=== PATIENT | female | born 1950 | race Caucasian/White ===

== ENCOUNTER 2016-11-18 10:47 | Inpatient (IN) | payer OTHER ==
[~2016-11-18] VITALS: Ht 157.5 cm; Wt 42.6 kg
--- NOTE | ~2016-11-18 | CO ---
Unit #: [id number] #: [id number] Patient: HEIDI FELICIANO [id number] [address] [address] [id number] I MR#: [id number] NAME: HEIDI FELICIANO ROOM: [facility] Age: 66 Sex: F Admission Date: 11/18/2016 : 1950 Attending Physician: Johan Iqbal M.D. Primary Care Physician: Issac Pena M.D. CONSULTATION REPORT REASON FOR CONSULTATION Respiratory failure and hypoxia. CHIEF COMPLAINT Fall. HISTORY OF PRESENT ILLNESS This patient is a 66-year-old female with a past medical history of left lung collapse since childhood for an unknown reason. Patient is not aware. Has a history of cardiac murmur and irregular heart rate. She presented with a fall and had a left femur fracture. Underwent repair and is requiring two liters oxygen postoperatively. Is hypoxic on two liters, and I am seeing the patient at the bedside. Currently comfortable. Mild shortness of breath. Denies any nausea, vomiting, diarrhea. No chest pain. MEDICATIONS As per MAY and have been reviewed. ALLERGIES Reviewed. REVIEW OF SYSTEMS Positive for pallor. No edema. No cyanosis. No jaundice. The rest is per History of Present Illness. The rest of a 12-point review of systems has been reviewed and is negative. PHYSICAL EXAMINATION VITAL SIGNS: Temperature 97, pulse 95, respirations 16, blood pressure 96/53. NEUROLOGIC: Awake, alert, oriented. No neuro deficits. HEENT: PERRLA. EOMI. NECK: Supple. No JVD. CHEST: Bilateral air entry. Bilateral mild rhonchi. Decreased air entry on the left side on auscultation. GASTROINTESTINAL: Nontender, soft. Bowel sounds positive. DIAGNOSTIC STUDIES LABORATORY: Reviewed. IMAGING: Reviewed. Chest x-ray showed left lung collapse with decreased inflation and right-sided pulmonary vascular congestion. ASSESSMENT Unit #: [id number] #: [id number] Patient: HEIDI FELICIANO 1. Acute postoperative hypoxia and pulmonary congestion. 2. 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 3. Irregular heart rate. PLAN At this point, the plan is to continue oxygen. Get a BNP level and 2D echo. Patient may have underlying pulmonary hypertension due to chronic loss of the pulmonary vasculature on the left side. Will get a noncontrast CT of the chest. Continue to wean oxygen (1) . May need diuretics. Will continue bronchodilator. Will follow up after the CT chest. Please see orders for detailed plans. Thank you very much for this consultation. We will continue to follow with you. Dictated by... Chandler Luna TD: 11/20/2016 21:56 JOB #: [id number] CONSULTATION REPORT Page 1 of 1 X Sirena Grove MD X CONSULTATION REPORT
--- NOTE | ~2016-11-18 | CR150 ---
[facility] A Service of [facility] RADIOLOGY TEXT RESULTS PATIENT: HEIDI FELICIANO LOCATION: C4 473-01 : [birth year] UNIT #: [id number] AGE: [address]: Johan Iqbal MD SEX: F ORDER DR: [id number] [facility] [address] [facility] [place] [facility]. [place], [place] [address] [id number] I MR#: [id number] Acc #: [id number] NAME: HEIDI FELICIANO : 1950 SEX: F STUDY DATE/TIME: 11/18/2016 11:15 UNIT: CEDOF ROOM: [id number] STUDY DESCRIPTION: CR Hip Min 2 Views Lt Attending Physician: Farzad Krause M.D. Ordering Physician: Yogesh Foreman D.O. Primary Care Physician: Issac Pena M.D. MEDICAL IMAGING REPORT This report is preliminary unless electronic signature is present EXAM AP pelvis with AP view of the left hip DATE 11/18/2016 HISTORY Left hip pain after falling this morning. COMPARISON None. FINDINGS There is a complete, displaced fracture of the subcapital left femoral neck with mild superior migration of the femoral shaft with respect to the femoral head. The femoral head remains appropriately located without hip dislocation. Right hip appears unremarkable. No pelvic ring fracture is seen. No sacroiliac joint or pubic symphysis diastasis is evident. IMPRESSION Complete fracture of the subcapital left femoral neck with mild superior migration of the femoral shaft. No hip dislocation. Dictated by... Stephanie White M.D. THIS IS AN ELECTRONICALLY VERIFIED REPORT Stephanie White M.D. at 11/19/2016 1:11 PM LLKym/steven TD: 11/18/2016 15:26 JOB #: [id number] [facility] A Service of [facility] RADIOLOGY TEXT RESULTS PATIENT: HEIDI FELICIANO LOCATION: C4 473-01 : [birth year] UNIT #: [id number] AGE: [address]: Johan Iqbal MD SEX: F ORDER DR: MEDICAL IMAGING REPORT Page 1 of 1 COPY
--- NOTE | ~2016-11-18 | CR206 ---
[facility] A Service of [facility] RADIOLOGY TEXT RESULTS PATIENT: HEIDI FELICIANO LOCATION: [facility] 473-01 : [birth year] UNIT #: [id number] AGE: [address]: Kirby Grover MD SEX: F ORDER DR: [id number] [facility] [address] [facility]. [place], [place] [address] [id number] I MR#: [id number] Acc #: [id number] NAME: HEIDI FELICIANO : 1950 SEX: F STUDY DATE/TIME: 11/19/2016 11:50 UNIT: [facility] ROOM: [facility] STUDY DESCRIPTION: CR Pelvis 1 or 2 Views Attending Physician: Kirby Grover M.D. Ordering Physician: Yared Guerra M.D. Primary Care Physician: Issac Pena M.D. MEDICAL IMAGING REPORT This report is preliminary unless electronic signature is present EXAM Pelvic radiograph. INDICATIONS Left-sided pelvic pain. Prior left total hip arthroplasty. FINDINGS Single AP view of the pelvis compared to 11/18/2016. Patient has undergone left hip hemiarthroplasty. The prosthesis is aligned anatomically. There is no new fracture. IMPRESSION Anatomic alignment status post left hip hemiarthroplasty. Dictated by... Cain De Santiago M.D. THIS IS AN ELECTRONICALLY VERIFIED REPORT Cain De Santiago M.D. at 11/22/2016 11:42 AM TODD/shakila TD: 11/21/2016 18:53 JOB #: [id number] MEDICAL IMAGING REPORT Page 1 of 1 COPY
--- NOTE | ~2016-11-18 | EKG ---
PATIENT: HEIDI FELICIANO UNIT #: [id number] Ventricular Rate: 106 BPM Atrial Rate: 106 BPM P-R Interval: 120 ms QRS Duration: 66 ms Q-T Interval: 328 ms QTC Calculation(Bezet): 435 ms P [place]: 75 degrees Calculated R [place]: -87 degrees Calculated T [place]: 42 degrees Diagnosis Line: Sinus tachycardia Diagnosis Line: Left axis deviation Diagnosis Line: Pulmonary disease pattern Baseline wander Diagnosis Line: Inferior infarct , age undetermined Diagnosis Line: Abnormal ECG Diagnosis Line: When compared with ECG of 18-NOV-2016 18:55, Diagnosis Line: (unconfirmed) Diagnosis Line: QRS axis Shifted left Diagnosis Line: Inferior infarct is now Present Diagnosis Line: Nonspecific T wave abnormality no longer evident Diagnosis Line: in Anterolateral leads Diagnosis Line: Confirmed by BLAKE MARIN MD ([id number]) on 11/20/2016 Diagnosis Line: 11:04:50 PM INTERPRETING MD: TOMAS GUZMAN
--- NOTE | ~2016-11-18 | OR ---
Unit #: [id number] #: [id number] Patient: HEIDI FELICIANO [id number] [address] [address] [id number] I MR#: [id number] NAME: HEIDI FELICIANO ROOM: 473 Date of Procedure: 11/19/2016 Admission Date: 11/18/2016 Surgeon: Nick Smith M.D. : 1950 Attending Physician: Johan Iqbal M.D. Primary Care Physician: Issac Pena M.D. OPERATIVE REPORT ADDENDUM Please change under the procedure performed, in parenthesis, there was a CPT code for the procedure, which should instead read 74104. Dictated by... Chandler Pfeiffer/romero TD: 11/20/2016 03:31 JOB #: [id number] OPERATIVE REPORT Page 1 of 1 X X PROCEDURE OPERATIVE NOTE
--- NOTE | ~2016-11-18 | CO ---
Unit #: [id number] #: [id number] Patient: HEIDI FELICIANO [id number] [facility] [address] [facility]. [place], [place] [address] [id number] I MR#: [id number] NAME: HEIDI FELICIANO ROOM: 473 Age: 66 Sex: F Admission Date: 11/18/2016 : 1950 Attending Physician: Johan Iqbal M.D. Primary Care Physician: Issac Pena M.D. Consultation Date: 11/18/2016 CONSULTATION REPORT SERVICE Orthopedic Surgery. REQUESTING SERVICE Hospitalist. CHIEF COMPLAINT Left hip fracture. HISTORY OF PRESENT ILLNESS The patient is a 66-year-old female, who per report tripped and fell over approximately one step on an incline landing on her left side. She states that she had immediate pain and was unable to walk and was brought to [facility] Emergency Department and found to have a displaced hip fracture. 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 PAST SURGICAL HISTORY The patient denies. MEDICATIONS The patient states that she does not take any medications. ALLERGIES None. SOCIAL HISTORY The patient denies alcohol or tobacco use. 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 PHYSICAL EXAMINATION GENERAL: The patient is alert and oriented x3. She is in no acute distress. HEENT: The patient is normocephalic and atraumatic. Pupils are equal, round, and reactive to light and accommodation. CHEST: Easy work of breathing. CARDIAC: The patient had regular rate and rhythm. ABDOMEN: Nontender, nondistended. MUSCULOSKELETAL: The patient does hold her left leg, and it shortened and Unit #: [id number] #: [id number] Patient: HEIDI FELICIANO in externally rotated position. Internal and external rotation, and flexion of the hip can cause the patient pain in the left groin. The patient is otherwise neurovascularly intact distally in the bilateral lower extremities and able to plantarflex and dorsiflex her feet against resistance. Sensation is intact to light touch in all nerve distributions. SKIN: Intact throughout. DIAGNOSTIC STUDIES IMAGING STUDIES: AP of the pelvis, and AP and lateral of the left hip demonstrate a displaced subcapital femoral neck fracture. The patient does have some evidence of osteopenia. No other acute abnormalities noted. ASSESSMENT This is a 66-year-old female with displaced femoral neck fracture. PLAN 1. The patient will be admitted to the Hospitalist Service and made n.p.o. with plans to go to the operating room tomorrow. 2. As the patient does look significantly older than she appears and per family report, is rather sedentary and not highly active. It will be reasonable to treat this patient with hemiarthroplasty. Given the location of the fracture, it will be unlikely to heal with fixation and this would also necessitate the patient be nonweightbearing and so she would likely do better with an option that lets her immediately weightbear. 3. Plan is to perform hemiarthroplasty with bipolar endoprosthesis via posterior approach. It was discussed with the patient and her family that we would give her posterior hip precautions after surgery, but she would be weightbearing as tolerated. All risk, benefits, and alternatives to the surgery were discussed with the patient and her family, and it was recommended that she undergo the hemiarthroplasty in order to minimize the potential complications from hip fracture. The plan would be to place the patient on a blood thinner postoperatively to prevent blood clots. Dictated by... Chandler Pfeiffer TD: 11/19/2016 14:03 JOB #: [id number] CONSULTATION REPORT Page 1 of 1 X X CONSULTATION REPORT
--- NOTE | ~2016-11-18 | OR ---
Unit #: [id number] #: [id number] Patient: HEIDI FELICIANO [id number] [address] [place], [place] [address] [id number] I MR#: [id number] NAME: HEIDI FELICIANO ROOM: 473 Date of Procedure: 11/19/2016 Admission Date: 11/18/2016 Surgeon: Nick Smith M.D. : 1950 Attending Physician: Johan Iqbal M.D. Primary Care Physician: Issac Pena M.D. OPERATIVE REPORT SERVICE Orthopedic Surgery. PREOPERATIVE DIAGNOSIS Left displaced femoral neck fracture. POSTOPERATIVE DIAGNOSIS Left displaced femoral neck fracture. PROCEDURE PERFORMED Left hip hemiarthroplasty for femoral neck fracture (CPT code 07595). ANESTHESIA General endotracheal. ESTIMATED BLOOD LOSS 400 mL. DRAINS None. SPECIMENS None. COMPLICATIONS None. PRODUCTION LINE MECHANIC FLUIDS Per Anesthesia report. IMPLANTS Ashland Accolade II size #4 stem, 132 degree neck angle; [place] LFIT V40 28 mm femoral head, 28 offset with 44 mm UHR bipolar component. INDICATIONS FOR PROCEDURE The patient is a 66-year-old female, who presented to [facility] Emergency Department with hip pain and was found to have displaced femoral neck fracture. The patient is 66 but low demand Unit #: [id number] #: [id number] Patient: HEIDI FELICIANO and per report from family rather sedentary and does look older than her stated age. Thus, it was felt that the best option was to perform a hemiarthroplasty for this femoral neck fracture. All risks, benefits, and alternatives to the procedure were discussed with the patient as well as a close family friend including, but not limited to, bleeding, infection, damage to adjacent neurovascular structures, blood clot, dislocation, fracture, need for further surgery, as well as anesthetic risks including the loss of life. Despite these risks, the patient did agree to proceed and informed consent was obtained. DESCRIPTION OF PROCEDURE The patient's left hip was marked after informed consent was obtained in the preoperative area and the patient was brought to the operative suite where general anesthesia was induced. The patient was then placed in the lateral decubitus position with her left hip up and secured well with a peg board. All bony prominences were padded and axillary roll had been placed. With the patient in good position for surgery, the left lower extremity was then prepped and draped in the standard sterile fashion. Surgical time-out was completed, and then approximately 10 cm incision over posterior border of the greater trochanter was made incising the skin sharply with a knife and then Bovie electrocautery was used to carry down to the fascia overlying greater trochanter. The fascia was then incised sharply and the gluteus melonie was split using a finger and then self-retaining retractor was used to retract the gluteus melonie. At this point, loose areolar tissue overlying the greater trochanter was gently to use the way using blunt dissection and Bovie electrocautery. At this point, same fracture hematoma was identified and was irrigated away and then the short external rotators were identified by internally rotating the hip and placing them on tension. At this point, retractor was placed under the gluteus medius and a knife was used to incise the interval between piriformis and gluteus minimus. Next, short external rotators were taken down off the back of the greater trochanter using Bovie electrocautery and carried down through the capsule of the hip creating an L-shaped capsulotomy connecting to the previous limb of the capsulotomy that was created with the knife. At this point, the capsule was then gently released off the femoral neck and the fracture was identified. The fracture hematoma was again irrigated and the leg was dropped into the hip pouch thus allowing exposure of the remaining femoral head within the acetabulum. At this point, a corkscrew was inserted by hand into the femoral head and gently lavaging and spinning it, it was able to be removed in one piece without difficulty. This was measured and found to be 44 mm. Then, the acetabulum was irrigated and several loose fragments of bone from the fractured femoral neck were removed. The acetabulum was inspected and found to be in good condition with no significant wear of cartilage and the labrum was intact and so plan to proceed with hemiarthroplasty continued. At this point, a femoral neck retractor was placed under the femoral neck and the leg was positioned to deliver the edge of the femur into the wound. A box osteotome was used to remove some bone from the medial aspect of the greater trochanter to allow for stretch out into the femoral canal, at which time, the femoral canal was then opened by hand using canal finding reamer. We then broached the femur sequentially to a #5 broach, which fit well, however, was found to be clearly too long, and so we downsized by going to back to a 3 and then to a 4 while calcar planning to allow for better fit of the femoral stem. A #4 stem was then trialed and found to reduce well with a -4 head. At this time, the trials were removed. The wound was irrigated, and the final #4 stem was impacted, however, was noted the stem did seat slightly more Unit #: [id number] #: [id number] Patient: HEIDI FELICIANO distal than the broach, and so we trialed again with a 0 head and found that this replicated the prior reduction. Thus the trial head was removed, and the final 28 head in the 44 mm bipolar shell was placed onto the trunnion and impacted, then checked to be sure that it was not loose and easily reduced back into the acetabulum. This was again taken through range of motion and found to be stable in all positions. At this point, the wound was again copiously irrigated and then the posterior capsule was repaired through drill holes in the greater trochanter using #2 FiberWire suture. This was augmented with several extracapsular sutures using #0 Vicryl. With the capsule closed and hemostasis obtained, the fascia overlying the gluteus melonie was closed tightly with 0 Vicryl suture and then skin was closed in layers including subcuticular running Monocryl and skin sealed with Prineo Dermabond mesh. At this point, a sterile dressing was placed and carefully keeping the leg externally rotated and abducted, the drapes were removed and the patient was returned to a supine and leg lengths were checked and found to be equal. Abduction pillow was then placed and the patient was awoken from general anesthesia having tolerated the procedure well. The patient returned to PACU and later to the floor in stable condition. At the conclusion of the procedure, all sponge, needle, and instrument counts were correct x2. Of note, the patient did receive tranexamic acid at the beginning of the case 10 mg/kg and did receive a second dose in PACU approximately 3 hours after the first. Also of note, the patient did receive preoperative antibiotic as per protocol. Dictated by.Patty. Chandler Pfeiffer/romero TD: 11/20/2016 07:54 JOB #: [id number] OPERATIVE REPORT Page 1 of 1 X X PROCEDURE OPERATIVE NOTE
--- NOTE | ~2016-11-18 | CR72 ---
[facility] A Service of [facility] RADIOLOGY TEXT RESULTS PATIENT: HEIDI FELICIANO LOCATION: [facility] 473-01 : [birth year] UNIT #: [id number] AGE: [address]: Kirby Grover MD SEX: F ORDER DR: [id number] [facility] [address] [place], [place] [address] [id number] I MR#: [id number] Acc #: [id number] NAME: HEIDI FELICIANO : 1950 SEX: F STUDY DATE/TIME: 11/20/2016 17:07 UNIT: [facility] ROOM: [facility] STUDY DESCRIPTION: CR Chest Single View Portable Attending Physician: Kirby Grover M.D. Ordering Physician: Johan Iqbal M.D. Primary Care Physician: Issac Pena M.D. MEDICAL IMAGING REPORT This report is preliminary unless electronic signature is present EXAM AP portable chest Date: 11/20/2016 17:07 HISTORY 66-year-old female shortness breath with activity and hypoxia. Symptoms began 11/19/2016. Fell on 11/18/2016. COMPARISON None FINDINGS There is severe volume loss in the left hemithorax. Partial opacification of the left hemithorax may represent layering with left pleural effusion. There is complete atelectasis versus dense pleural parenchymal thickening/fibrosis in the left apex. Advanced emphysematous changes are present in the right lung, there is mild scarring or atelectasis in the right costophrenic angle. Multiple old left rib fractures are demonstrated. Heart size is probably within normal limits, allowing for obscuration of cardiac silhouette by left chest opacity. Impression 1. Marked volume loss in the left hemithorax. There is either pleural parenchymal thickening/scarring in the left apex versus left apical consolidation/atelectasis. Hazy opacification throughout the left hemithorax may represent layering of left pleural fluid, as well. 2. Mild atelectasis or scarring in the right costophrenic angle with emphysematous changes in the right lung. 3. No comparison studies at this institution. Dictated by... Stephanie White M.D. [facility] A Service of [facility] RADIOLOGY TEXT RESULTS PATIENT: HEIDI FELICIANO LOCATION: [facility] 473-01 : [birth year] UNIT #: [id number] AGE: [address]: Kirby Grover MD SEX: F ORDER DR: THIS IS AN ELECTRONICALLY VERIFIED REPORT Stephanie White M.D. at 11/22/2016 9:51 AM PIETER/cecily TD: 11/21/2016 11:47 JOB #: [id number] MEDICAL IMAGING REPORT Page 1 of 1 COPY
--- NOTE | ~2016-11-18 | A ---
[facility] Nutrition Therapy DATE: 11/21/16 Patient: HEIDI FELICIANO Physician: MERCEDES Address: [address] [place] [address] Room/Bed: [address] [place] [address], Zip: [place] [address] Admit Date: 11/18/16 Date of : [birth year] Height: 5 2 Weight: 94 42.63 NUTRITIONAL ASSESSMENT: REASON: LOW BMI PT IS 66 Y.O. FEMALE ADMITTED FOR FALL, (R) HIP HURTS PMH: CHRONIC (L) LUNG COLAPSE (HYPOPLASTIC LUNG), IRREGULAR HEART RATE Anthropometrics: 5'2", WT: 93# (42 KG), BMI: 17, 85%IBW Labs: GLU: 125, NA+:134, CA+:7.9 Meds: ZOFRAN I/O & Bowel function: 3225/1400 Skin Integrity: DRY SKIN NOTED ALL OVER BODY Estimated Nutrition Needs: INCREASED NEEDS 2' PMH, PT UNDERWEIGHT STATUS Assessment: CHART REVIEWED AND EVENTS NOTED. PT SEEN FOR UNDERWEIGHT STATUS (LOW BMI). PT REPORTS "APPETITE GOES UP AND DOWN", NOTING NOT LIKING THE HOSPITAL FOOD HERE AT [facility]. PT REPORTS A FRIEND BRINGING DINNER FROM OUTSIDE [facility]. PT ADDS THAT SHE SNACKS ON CHEESE STICKS AND CHIPS. PT DENIES ANY RECENT WEIGHT LOSS, NOTES UBW IS "IN THE 90s". THIS RD ENCOURAGED SMALL FREQUENT MEALS + SUPPLEMENT INTAKE, PT AGREED TO ENSURE PUDDING BID, RD TO ORDER. PT REPORTED NO DIET QUESTIONS AT THIS TIME. RD TO FOLLOW. SEE RECOMMENDATIONS BELOW. Dx: UNDERWEIGHT R/T LIFESTYLE, PMH AEB BMI OF 17, 85%IBW. Intervention: 1. HH DIET 2. ENSURE PUDDING BID Monitoring, Evaluation and Goals: 1. ORAL INTAKE; CONSUME/TOLERATE >50% OF MEALS AND SUPPLEMENTS 2. WEIGHTS; PREVENT WEIGHT LOSS; PROMOTE GRADUAL WEIGHT GAIN TOWARDS HEALTHY BMI 3. LABS; WNL MONITOR: PER PROTOCOL, CRITERIA TO DETERMINE IF ABOVE GOALS ARE MET Recommendations: 1. PLEASE ORDER [place] ENSURE PUDDING BID W/MEALS FOR ADDITIONAL PROTEIN AND KCAL [facility] Nutrition Therapy DATE: 11/21/16 Patient: HEIDI FELICIANO Physician: MERCEDES Address: [address] [place] [address] Room/Bed: [address] [place] [address], Zip: [place] [address] Admit Date: 11/18/16 Date of : [birth year] Height: 5 2 Weight: 94 42.63 2. RECOMMEND TO CHANGE CURRENT DIET ORDER TO REGULAR IF PO INTAKE <50%. APPRECIATE FAMILY AND STAFF TO ENCOURAGE PO INTAKE RD WILL F/U PER PROTOCOL PT IS MILDLY COMPROMISED Respectfully, HUGO ARCOS MS, RD, LD [employer] [facility] Nutrition[facility] cc: client file
--- NOTE | ~2016-11-18 | CT57 ---
[facility] A Service of [facility] & [facility] RADIOLOGY TEXT RESULTS PATIENT: HEIDI FELICIANO LOCATION: [facility] [id number] : [birth year] UNIT #: [id number] AGE: [address]: Johan Iqbal MD SEX: F ORDER DR: [id number] [facility] [address] [place], [place] [address] [id number] I MR#: [id number] Acc #: [id number] NAME: HEIDI FELICIANO : 1950 SEX: F STUDY DATE/TIME: 11/20/2016 19:10 UNIT: [facility] ROOM: [facility] STUDY DESCRIPTION: CT Chest Wo Cont Attending Physician: Johan Iqbal M.D. Ordering Physician: Sirena Grove M.D. Primary Care Physician: Issac Pena M.D. MEDICAL IMAGING REPORT This report is preliminary unless electronic signature is present EXAM CT chest without contrast 11/20/2016 1910 hours HISTORY 66-year-old woman with history of hypoxia and shortness of air for 2 days, abnormal chest x-ray. Patient states history of collapsed lung as a child. COMPARISON Chest x-ray 11/20/2016 TECHNIQUE Helical noncontrasted images were obtained from the thoracic inlet through the adrenal glands. Sagittal and coronal reconstructions were performed. No contrast was administered. Total exam DLP 232 mGy-cm. This CT exam was performed with one or more of the following radiation dose reduction techniques: automatic control, adjustment of mA and/or kV according to patient size, and iterative reconstruction. FINDINGS Images through the thoracic inlet demonstrate no thyroid mass or supraclavicular adenopathy. There is marked volume loss in the left hemithorax and shift of the heart and mediastinum to the left. There is a fusiform ascending aortic aneurysm measuring up to 4 cm. This tapers in the aortic arch with proximal descending thoracic aorta measuring 2.8 cm. The main pulmonary artery is enlarged measuring 3.7 cm with right pulmonary artery 2.6 cm. There is a very small left pulmonary artery difficult to discriminate. There is minimal left apical pleural thickening. Much of the left apical density seen on plain film is related to the tortuous ectatic aorta. Images of the left lung demonstrate minimal linear stranding at the medial left lung base. I do not identify a left upper lobe bronchus nor a STS. [facility] A Service of [facility] & [facility] RADIOLOGY TEXT RESULTS PATIENT: HEIDI FELICIANO LOCATION: [facility] : [birth year] UNIT #: [id number] AGE: [address]: Johan Iqbal MD SEX: F ORDER DR: fissure on the left and I question whether the patient has had a left upper lobectomy. There are small horizontally oriented vessels in the medial left lower lobe which may represent pulmonary veins extending to a small inferior left pulmonary vein. There is some plaque-like pleural thickening in the lateral upper left hemithorax which appears relatively smooth and is likely chronic. There is a relative hyperexpansion of the right lung with peripheral linear density at the right lung base. Chronic atelectasis or scar is favored. There is no definite pneumonia, edema or bronchiectasis on the right. Limited views through the upper abdomen demonstrate cholecystectomy change. There is food debris distending the stomach. There is no adrenal lesion. IMPRESSION 1. There is marked volume loss in the left hemithorax with appropriate shift of heart and mediastinum to the left. I do not identify a left upper lobe bronchus nor do I see a fissure on the left and the findings suggest that the patient may have had a left upper lobectomy. History form states no prior chest surgery. There is a very small left pulmonary artery and there are small horizontally oriented vessels at the posteromedial left lung base which I believe extend to a small left inferior pulmonary vein. 2. Fusiform ascending aortic aneurysm measuring 4 cm. The main pulmonary artery measures 3.7 cm and the right pulmonary artery measures 2.6 cm. These are enlarged. 3. The right lung demonstrates linear to bandlike density at the right lung base which could represent atelectasis or scar. No evidence of acute pneumonia or effusion. 4. Limited views through the upper abdomen are negative. STAT * RESULT Dictated by... Melanie Cuellar M.D. THIS IS AN ELECTRONICALLY VERIFIED REPORT Melanie Cuellar M.D. at 11/21/2016 9:03 AM LEOBARDO/amairanir TD: 11/21/2016 00:07 JOB #: [id number] MEDICAL IMAGING REPORT [facility] A Service of [facility] & [facility] RADIOLOGY TEXT RESULTS PATIENT: HEIDI FELICIANO LOCATION: [facility] [id number] : [birth year] UNIT #: [id number] AGE: [address]: Johan Iqbal MD SEX: F ORDER DR: Page 1 of 1 COPY
--- NOTE | ~2016-11-18 | DS ---
Unit #: [id number] #: [id number] Patient: HEIDI FELICIANO [id number] [address] [place], [place] [address] [id number] I MR#: [id number] NAME: HEIDI FELICIANO ROOM: 473 Age: 66 Sex: F Admission Date: 11/18/2016 : 1950 Discharge Date: 11/22/2016 Attending Physician: Kirby Grover M.D. Primary Care Physician: Issac Pena M.D. DISCHARGE SUMMARY DIAGNOSIS ON ADMISSION Left hip fracture. DIAGNOSES ON DISCHARGE 1. Left hip fracture, status post left hip hemiarthroplasty. 2. Postoperative acute respiratory failure, resolved. 3. Anemia, secondary to acute blood loss. 4. Patient has malnutrition and underweight. CONSULTATIONS 1. Dr. Grove in pulmonary consultation. 2. Dr. Smith in orthopedic consultation. DIAGNOSTIC STUDIES LABORATORY: BNP was 133. Urine culture was negative. Patient's sodium is 137, potassium 4.5, creatinine 1.1. WBC 6.2, hemoglobin 7.5, platelet count 156,000. IMAGING: Patient had a pelvic x-ray done which revealed anatomic alignment status post left hip hemiarthroplasty. Patient had a CT scan of chest done which revealed marked volume loss in left hemithorax. Findings were suggestive of maybe possible left upper lobectomy. Fusiform ascending aortic aneurysm, 4 cm. Patient's main pulmonary artery measured 3.7 cm. ASSESSMENT AND PLAN A 66-year-old patient presented to [facility] with left hip fracture. Details are as per admission history and physical. 1. Left hip fracture: Patient was seen by Dr. Smith in consultation and underwent left hip hemiarthroplasty which she tolerated well. 2. Postoperative acute respiratory failure: Patient was seen by Dr. Grove and group in consultation. She required oxygen, but patient is gradually weaned off her oxygen and is doing well on room air. Patient also had a 2D echocardiogram done which revealed normal ejection fraction at 60%. 3. Anemia: Patient has anemia secondary to acute blood loss. Hemoglobin is 7.5. We will start her on iron supplement. Today patient will be transferred for rehab. PHYSICAL EXAMINATION VITAL SIGNS: Patient's vital signs reveal temperature 98.1, pulse 98 per Unit #: [id number] #: [id number] Patient: HEIDI FELICIANO minute, respiratory rate 18 per minute, blood pressure 112/78. HEENT: Revealed no conjunctival congestion. Sclerae nonicteric. NECK: Supple. Trachea central. RESPIRATORY: Revealed decreased breath sounds bilaterally. There are no wheezes or crackles. HEART: Regular rate and rhythm. S1, S2. ABDOMEN: Soft, nontender. Bowel sounds are present in all four quadrants. NEUROLOGIC: Patient is alert to person, place, and time. SKIN: Warm and dry. RECOMMENDATIONS ON DISCHARGE Condition is stable. Activity is as tolerated. MEDICATIONS 1. Combivent Mini neb treatment q.4 hours p.r.n. 2. Tylenol 650 mg p.o. every six hours p.r.n. 3. Xarelto 10 mg p.o. daily, duration as per orthopedics. 4. Oxycodone 5 mg one p.o. q.4 hours p.r.n. pain. 5. Ferrex 150 mg p.o. daily with food. 6. Colace 100 mg p.o. b.i.d. DISPOSITION Patient will be transferred to rehab. Kindly repeat patient's CBC and BMP in one week. Please feel free to call us if there are any questions regarding this hospitalization. Dictated by... Chandler Gore/steven TD: 11/22/2016 11:34 JOB #: [id number] DISCHARGE SUMMARY Page 1 of 1 X Kirby Grover MD X DISCHARGE SUMMARY
--- NOTE | ~2016-11-18 | HP ---
Unit #: [id number] #: [id number] Patient: HEIDI FELICIANO [id number] [address] [place], [place] [address] [id number] I MR#: [id number] NAME: HEIDI FELICIANO ROOM: 58777 Age: 66 Sex: F Admission Date: 11/18/2016 : 1950 Attending Physician: Farzad Krause M.D. Primary Care Physician: Issac Pena M.D. HISTORY AND PHYSICAL CHIEF COMPLAINT Chief complaint is a fall. HISTORY OF PRESENT ILLNESS The patient is a 66-year-old female with no significant past medical history, brought to the emergency room status post fall. The patient was going to the bathroom and she tripped on floor and fell earlier this morning. The patient was complaining of the left hip pain and unable to arise by self. The patient was brought to the emergency room and had an x-ray of the hip that shows the femoral neck fracture and is being admitted for the above reasons. Denies any fever. Denies any chills. Denies any head trauma. PAST MEDICAL HISTORY History of a cardiac and thyroid and irregular heart rate. PAST SURGICAL HISTORY Ear plastic surgery, corrective eye surgery. HOME MEDICATIONS None. ALLERGIES No known drug allergies. SOCIAL HISTORY Denies any history of smoking cigarettes, drinking alcohol or any illicit drug abuse. FAMILY HISTORY Reviewed. REVIEW OF SYSTEMS Positive for fall. Positive for the pain. Negative for chest pain. Negative for nausea and vomiting. Negative for loss of consciousness and all other systems have been reviewed and are negative. PHYSICAL EXAMINATION GENERAL APPEARANCE: On examination the patient is lying on a bed not in acute distress. VITAL SIGNS: Temperature 98.1, pulse 76, respiratory rate 18, blood pressure 134/80, sating 98% at room air. HEAD: Head atraumatic/normocephalic. Unit #: [id number] #: [id number] Patient: HEIDI FELICIANO HEENT: Pupils equal, round and reacting to light and accommodation. Extraocular movements are intact. Dry mucous membrane. NECK: Supple. LUNGS: Decreased air entry at the bases. HEART: Regular rate and rhythm. ABDOMEN: Soft, positive bowel sounds. EXTREMITIES: Pain at the left hip joint. NEURO: Awake, alert, oriented. No gross focal motor deficit. PSYCH: Mood and affect are appropriate. DIAGNOSTIC STUDIES LAB DATA: WBCs 9, hemoglobin is 14.1, hematocrit 43.2, platelet 225, INR is 1, sodium 140, potassium 4.5, chloride 103, bicarb 27, glucose 113, BUN 13, creatinine 0.7, calcium 9.3. IMAGING: An x-ray of the hip shows complete fracture of the subcapital left femoral neck with a mild superior migration of the femoral shaft. No hip dislocation. ASSESSMENT AND PLAN 1. Status post fall. 2. Left femoral neck fracture. Plan to admit to the inpatient with the med/surg floor and will have the ortho evaluation for the open reduction and internal fixation, check the EKG and check the UA for the preop clearance and repeat the CBC/BMP in the morning and continue with the IV fluids D5 half NS 75 mL per hour and morphine for the pain and further recommendations will follow as more lab results are available. Dictated by Chandler Palma/yesika TD: 11/18/2016 16:12 JOB #: [id number] HISTORY AND PHYSICAL Page 1 of 1 X MALLORY MACHADO MD X HISTORY AND PHYSICAL
--- NOTE | ~2016-11-18 | EKG ---
PATIENT: HEIDI FELICIANO UNIT #: [id number] Ventricular Rate: 82 BPM Atrial Rate: 82 BPM P-R Interval: 120 ms QRS Duration: 66 ms Q-T Interval: 372 ms QTC Calculation(Bezet): 434 ms P [place]: 66 degrees Calculated R [place]: 33 degrees Calculated T [place]: 51 degrees Diagnosis Line: Normal sinus rhythm Diagnosis Line: Low voltage QRS Diagnosis Line: Nonspecific T wave abnormality Diagnosis Line: Otherwise normal ECG Diagnosis Line: No previous ECGs available Diagnosis Line: Confirmed by BLAKE MARIN MD ([id number]) on 11/20/2016 Diagnosis Line: 11:02:11 PM INTERPRETING MD: TOMAS GUZMAN
[~2016-11-18 10:47] MED LIST: KEFLEX PO
[2016-11-18] MEDS ORDERED: NO MEDICATIONS (12:13)
[2016-11-18 12:20] LABS: BASOPHIL% 0.2 % (0-2.5); EOSINOPHIL% 0.1 % (0.0-7.0); HEMATOCRIT 43.2 % (35.0-45.0); HEMOGLOBIN 14.1 gm/dL (12.0-16.0); LYMPHOCYTE# 0.9 X10e3 (1.0-3.5); LYMPHOCYTE% 9.5 % (17.0-45.0); MEAN CELL VOLUME 89.5 FL (83-96); MEAN CORPUSCULAR HEMOGLOBIN 29.3 PG (28-34); MEAN CORPUSCULAR HGB CONC 32.7 g/dL (30-36); MEAN PLATELET VOLUME 8.8 FL (6.5-11.5); MONOCYTE# 0.4 X10e3 (0-1.0); MONOCYTE% 4.9 % (3.0-12.0); NEUTROPHIL# 7.7 X10e3 (1.5-7.1); NEUTROPHIL% 85.3 % (40-75); PLATELET COUNT 225 X10e3 (140-420); RED BLOOD COUNT 4.83 X10e (3.90-5.30); RED CELL DISTRIBUTION WIDTH 13.6 % (11.0-15.5)
[2016-11-18 12:25] LABS: DIFF IND NO
[2016-11-18 12:33] LABS: PARTIAL THROMBOPLASTIN TIME 23.8 SECONDS (23.5-31.3); PROTHROMBIN TIME (PATIENT) 10.5 SECONDS (10.0-11.7)
[2016-11-18 12:44] LABS: BUN/CREATININE RATIO 18.57; CALCIUM SERUM 9.3 mg/dL (8.4-10.2); CREATININE SERUM 0.7 mg/dL (0.6-1.4); GLOM FILT RATE Estimated 89.7 mL/min (>60); POTASSIUM 4.5 mmol/L (3.5-5.1)
[2016-11-18 20:29] LABS: URINE APPEARANCE CLEAR; URINE BILIRUBIN NEG (NEG); URINE BLOOD NEG (NEG); URINE COLOR YELLOW; URINE GLUCOSE NEG (NEG); URINE KETONE NEG (NEG); URINE LEUKOCYTE ESTERASE NEG (NEG); URINE NITRATE NEG (NEG); URINE PROTEIN NEG (NEG); URINE SPECIFIC GRAVITY 1.012 (1.003-1.035); URINE UROBILINOGEN 0.2 MG/DL (NEG)
[2016-11-19 02:15] LABS: BASOPHIL% 0.8 % (0-2.5); EOSINOPHIL# 0.1 X10e3 (0-0.7); EOSINOPHIL% 1.1 % (0.0-7.0); HEMATOCRIT 35.9 % (35.0-45.0); LYMPHOCYTE# 1.3 X10e3 (1.0-3.5); LYMPHOCYTE% 24.3 % (17.0-45.0); MEAN CELL VOLUME 89.5 FL (83-96); MEAN CORPUSCULAR HEMOGLOBIN 29.5 PG (28-34); MEAN CORPUSCULAR HGB CONC 32.9 g/dL (30-36); MEAN PLATELET VOLUME 7.9 FL (6.5-11.5); MONOCYTE# 0.4 X10e3 (0-1.0); MONOCYTE% 7.9 % (3.0-12.0); NEUTROPHIL# 3.5 X10e3 (1.5-7.1); NEUTROPHIL% 65.9 % (40-75); PLATELET COUNT 175 X10e3 (140-420); RED BLOOD COUNT 4.01 X10e (3.90-5.30); RED CELL DISTRIBUTION WIDTH 13.8 % (11.0-15.5); WHITE BLOOD COUNT 5.3 X10e3 (4.0-10.5)
[2016-11-19 02:28] LABS: DIFF IND NO; HEMOGLOBIN 11.8 gm/dL (12.0-16.0)
[2016-11-19 02:36] LABS: BUN/CREATININE RATIO 12.22; CALCIUM SERUM 8.3 mg/dL (8.4-10.2); CREATININE SERUM 0.9 mg/dL (0.6-1.4); GLOM FILT RATE Estimated 66.2 mL/min (>60); POTASSIUM 4.2 mmol/L (3.5-5.1)
[2016-11-19 12:09] LABS: BASOPHIL% 0.3 % (0-2.5); HEMATOCRIT 31.1 % (35.0-45.0); HEMOGLOBIN 10.4 gm/dL (12.0-16.0); LYMPHOCYTE# 1.5 X10e3 (1.0-3.5); LYMPHOCYTE% 15.3 % (17.0-45.0); MEAN CELL VOLUME 89.5 FL (83-96); MEAN CORPUSCULAR HGB CONC 33.6 g/dL (30-36); MEAN PLATELET VOLUME 8.2 FL (6.5-11.5); MONOCYTE# 0.7 X10e3 (0-1.0); NEUTROPHIL# 7.6 X10e3 (1.5-7.1); NEUTROPHIL% 77.4 % (40-75); PLATELET COUNT 150 X10e3 (140-420); RED BLOOD COUNT 3.48 X10e (3.90-5.30); RED CELL DISTRIBUTION WIDTH 13.5 % (11.0-15.5)
[2016-11-19 12:14] LABS: DIFF IND NO; WHITE BLOOD COUNT 9.9 X10e3 (4.0-10.5)
[2016-11-20 02:40] LABS: BASOPHIL% 0.5 % (0-2.5); EOSINOPHIL# 0.1 X10e3 (0-0.7); EOSINOPHIL% 2.3 % (0.0-7.0); HEMATOCRIT 26.4 % (35.0-45.0); HEMOGLOBIN 8.8 gm/dL (12.0-16.0); LYMPHOCYTE# 1.5 X10e3 (1.0-3.5); LYMPHOCYTE% 25.2 % (17.0-45.0); MEAN CELL VOLUME 89.2 FL (83-96); MEAN CORPUSCULAR HEMOGLOBIN 29.6 PG (28-34); MEAN CORPUSCULAR HGB CONC 33.2 g/dL (30-36); MEAN PLATELET VOLUME 8.6 FL (6.5-11.5); MONOCYTE# 0.4 X10e3 (0-1.0); MONOCYTE% 7.4 % (3.0-12.0); NEUTROPHIL# 3.8 X10e3 (1.5-7.1); NEUTROPHIL% 64.6 % (40-75); PLATELET COUNT 119 X10e3 (140-420); RED BLOOD COUNT 2.96 X10e (3.90-5.30); RED CELL DISTRIBUTION WIDTH 13.3 % (11.0-15.5); WHITE BLOOD COUNT 5.9 X10e3 (4.0-10.5)
[2016-11-20 02:43] LABS: DIFF IND NO
[2016-11-20 03:04] LABS: CALCIUM SERUM 7.9 mg/dL (8.4-10.2); GLOM FILT RATE Estimated 58.3 mL/min (>60); POTASSIUM 4.8 mmol/L (3.5-5.1)
[2016-11-20 17:02] LABS: ARTERIAL BLOOD GAS CARBOXY HB 0.7 %sat (0.0-9.0); ARTERIAL BLOOD GAS HCO3 29.4 mmol/L; ARTERIAL BLOOD GAS MET HB 0.7 %sat (0.0-2.0); ARTERIAL BLOOD GAS PCO2 45.9 mmHg (35.0-45.0); ARTERIAL BLOOD GAS PO2 83.4 mmHg (80.0-100); ARTERIAL BLOOD GAS pH 7.416 (7.350-7.450)
[2016-11-20 17:06] LABS: ARTERIAL BLOOD GAS ALLEN TEST N; ARTERIAL BLOOD GAS ART SITE RIGHT RADIAL; ARTERIAL BLOOD GAS DELIVERY NASAL CANNULA; ARTERIAL DRAW? YES
[2016-11-22 02:22] LABS: HEMATOCRIT 22.2 % (35.0-45.0); HEMOGLOBIN 7.5 gm/dL (12.0-16.0); MEAN CELL VOLUME 88.2 FL (83-96); MEAN CORPUSCULAR HEMOGLOBIN 29.6 PG (28-34); MEAN CORPUSCULAR HGB CONC 33.6 g/dL (30-36); MEAN PLATELET VOLUME 8.3 FL (6.5-11.5); RED BLOOD COUNT 2.52 X10e (3.90-5.30); RED CELL DISTRIBUTION WIDTH 12.9 % (11.0-15.5); WHITE BLOOD COUNT 6.2 X10e3 (4.0-10.5)
[2016-11-22 02:44] LABS: CALCIUM SERUM 7.8 mg/dL (8.4-10.2); CREATININE SERUM 1.1 mg/dL (0.6-1.4); GLOM FILT RATE Estimated 51.9 mL/min (>60); POTASSIUM 4.5 mmol/L (3.5-5.1)
== END 2016-11-22 15:45 | DRG 469 ==
LOC: CED 10:47 → C4C 13:15 → CEDOF 13:15 → C4C 13:58 → CEDOF 13:58 → CED 13:58 → CEDOF 18:15 → C4C 18:15
PROVIDERS: Emergency Medicine; Internal Medicine; Orthopaedic Surgery
PROC: 0SRS0JZ Replacement of Left Hip Joint, Femoral Surface with Synthetic Substitute, Open Approach (ICD-10-PCS; principal; 2016-11-19 10:00)
DX: S72.002A Fracture of unspecified part of neck of left femur, initial encounter for closed fracture (principal); J96.01 Acute respiratory failure with hypoxia; D62 Acute posthemorrhagic anemia; E46 Unspecified protein-calorie malnutrition; Z68.1 Body mass index [BMI] 19.9 or less, adult; W19.XXXA Unspecified fall, initial encounter; Y92.9 Unspecified place or not applicable
CPT/HCPCS: 36415; 36600; 71010; 71250; 72170; 73502; 80048; 81003; 82803; 83880; 85025; 85027; 85610; 85730; 87086; 93005; 93306; 94640; 94760; 96374; 96375; 97110; 97116; 97162; 99285; C1776; G8978-GP; G8979-GP; J0131; J0330; J0690; J1170; J1885; J2250; J2270; J2370; J2405; J2710; J3010